=== PATIENT | female | born 1955 | race African-American/Black ===

== ENCOUNTER 2023-04-14 07:52 | Day surgery (SDC) | payer OTHER ==
--- NOTE | 2023-04-08 11:25 | RAD REPORT ---
EXAM DESCRIPTION: RAD - Chest Pa And Lat (2 Views) - 04/08/2023 11:18 am CLINICAL HISTORY: pre op pending mass removal Chest pain. COMPARISON: <Comparisons> FINDINGS: The lungs are clear. The heart is upper limit of normal in size. No displaced fractures. IMPRESSION: No acute or concerning finding suspected. The USPSTF recommends annual screening for lung cancer with low-dose CT (LDCT) in adults aged 50 to 8 0 years who have a 20 pack-year smoking history and currently smoke or have quit within the past 15 y ears.
[2023-04-08 11:26] LABS: Absolute Lymphocytes (CBC) 2.1 K/uL (0.7-4.9); Hematocrit 35.7 % (36.0-45.0); Lymphocytes % 49.5 % (15.3-44.8); MCV 85.6 fL (80-100); MPV 8.9 fL (7.6-11.3); Platelets 215 thou/uL (152-406); RBC Red Blood Cell Count 4.17 M/uL (3.86-4.86)
[2023-04-08 11:28] LABS: Potassium 4.2 mEq/L (3.5-5.1)
--- NOTE | 2023-04-08 12:36 | EKG ---
Test Date: 2023-04-08 Test Time: 10:54:08 Steel Inspector: MATEO MEASUREMENT RESULTS: Intervals: Rate: 89 DE: 182 QRSD: 82 QT: 358 QTc: 435 [place]: P: 71 DE: 182 QRS: 68 T: 46 INTERPRETIVE STATEMENTS: Normal sinus rhythm Normal ECG Compared to ECG 10/12/2013 16:21:36 First degree AV block no longer present Electronically Signed On 04-08-23 12:36:08 CDT by Desmond uDtton
[2023-04-14] MEDS ORDERED: NA CHLORIDE 0.9% 1,000 ML ONE (08:18)
[2023-04-14] MEDS ORDERED: CEFAZOLIN SODIUM 1 GM/VIAL ONE (08:18)
[2023-04-14] MEDS ORDERED: ONDANSETRON 4 MG/2 ML VIAL ONE (09:07)
[2023-04-14] MEDS ORDERED: dexAMETHasone 10 MG/ML VIAL ONE (09:07)
[2023-04-14] MEDS ORDERED: MIDAZOLAM HCL 2 MG/2 ML INJ ONE (09:07)
[2023-04-14] MEDS ORDERED: LIDOCAINE 2% MPF 5 ML VIAL ONE (09:07)
[2023-04-14] MEDS ORDERED: FENTANYL CITR 100 MCG/2 ML ONE (09:07)
[2023-04-14] MEDS ORDERED: propofoL 200 MG/20 ML VIAL IV ONE (09:07)
[2023-04-14] MEDS ORDERED: KETOROLAC 30 MG/ML INJ ONE (09:08)
[2023-04-14] MEDS ORDERED: BUPIVACAINE 0.5% PF 10 ML VIAL ONE (09:09)
--- NOTE | 2023-04-14 09:57 | P.OP ---
Date of Service: 04/14/23 Preop diagnosis: Left thigh masssymptomatic Postop diagnosis: Same Procedure performed: Excision left thigh mass 4 x 2 cm with layered closure Surgeon: Raffaele Adams MD Director Volunteer Services: None Estimated blood loss: Minimal Specimen: Left thigh mass Findings: Inflamed lipoma Anesthesia: General Complications: None Drains: None Fluids and blood products: Nonapplicable Disposition: Recovery room Operative note: Patient brought to the OR placed in the supine position. General anesthesia begun. Patient placed in the right lateral position. Patient prepped and draped in usual sterile fashion. 0.5% Marcaine infiltrated locally in the left lateral thigh area over the mass that was palpable. 15 blade used to make a 4 cm incision. Subcutaneous tissue divided and bleeding controlled cautery. Deep to the subcutaneous tissue, approximately a 2 cm inflamed lipoma identified and excised. Wound irrigated and bleeding controlled cautery. Flaps created. 3-0 chromic used to approximate subcutaneous tissue. 5-0 nylon used to close skin. Sterile dressing applied. Patient awakened and taken to recovery room in good general condition. CC: Dr. Orozco's office
[2023-04-14] MEDS ORDERED: TRAMADOL 37.5mg/APAP 325mg PER TAB PO PRN (09:58)
[2023-04-14] MEDS ORDERED: HYDROMORPHONE HCL 1 MG/ML INJ ONE (10:26)
[2023-04-14 10:45] VITALS: BP 143/64; TEMP 97; O2SAT 99
[2023-04-14] MEDS ORDERED: TRAMADOL 37.5mg/APAP 325mg PER TAB ONE (11:17)
== END 2023-04-14 11:19 | disposition home or self-care (01) ==
LOC: OR 07:52
PROVIDERS: ATTEND Surgery
PROC: 0JBM0ZZ Excision of Left Upper Leg Subcutaneous Tissue and Fascia, Open Approach (ICD-10-PCS; principal; 2023-04-14 09:00)
DX: D17.24 Benign lipomatous neoplasm of skin and subcutaneous tissue of left leg (principal)
CPT/HCPCS: 93005; 85025; 80048; 36415; 82947 ×2; 88305; 71046; 11402; J2704; J2001; J2250; J3010; J1100; J1170; J2405; J7030; J0690; 88304